=== PATIENT | female | born 2005 | race African-American/Black ===

== ENCOUNTER 2024-07-29 07:17 | Emergency (ER) | payer OTHER ==
--- OUTSIDE RECORDS SUMMARY | 2024-07-29 07:20 | XMS REPORT | Continuity of Care Document ---
Author Name Unknown Address [address] [place] [address] [facility] thconnect Address [address] [place] [address] Care Team Providers Care Sales Representative [facility] Name Role Phone INOCNETE HOWE Primary Care Physician Unava ilable INNA CASTRO Attending Clinician Unavail able LISA FLORES Attending Clinician Unavailable LISA FLORES Attending Clinician Unavailable Lisa Flores DO Attending Clinician Grover Inna KIRK Attending Clinician + MARCOS Attending Clinician Unavailable MARCOS Admitting Clinician Unavailable Payers Payer Name Policy Type Policy Number Effective Date Expirati on Date Source [place] [facility] [id number] 2024 00:00:00 [facility] (MEDICAID HMO) [id number] 2016 00:00:00 [facility] [place] [facility] (MEDICAID HMO) [id number] 2016 00:00:00 Problems Condition Name Condition Details Condition Category Status Onset Date Resolution Date Last Treatment Date Treating Clinician Comments Source Supervisio n of high risk , antepartum Supervisio n of high risk , antepartum Disease Active 06-22 00:00: 00 General acute hospital Obesity in Obesity in Disease Active 06-22 00:00: 00 General acute hospital Allergies, Adverse Reactions, Alerts Allergy Name Allergy Type Status Severity Reaction(s) Onset Date Inactive Date Treating Clinician Comments Source NO KNOWN ALLERGIE S Drug Class Active General acute hospital Social History Social Habit Start Date Stop Date Quantity Comments Source ASSERTION 2024-05-25 00:00:00 [facility] Alcoholic beverage intake 2024-07-20 00:00:00 2024-07-20 00:00:00 Lifetime non-drinker (finding) [facility] Tobacco use and exposure 2024-06-22 00:00:00 2024-06-22 00:00:00 Smokeless tobacco non-user [facility] History of Social function 2024-06-22 00:00:00 2024-06-22 00:00:00 [facility] Sex assigned at 2003 00:00:00 2003 00:00:00 [facility] Smoking Status Start Date Stop Date Source Never smoked tobacco General acute hospital Medications Ordered Medication Name Filled Medication Name Start Date Stop Date Current Medication? Ordering Clinician Indication Dosage Frequency Signature (SIG) Comments Components Source PNV 67-iron ps-folate no.1-dha (VITAFOL ULTRA) 29 mg iron- 1 mg-200 mg Cap 06-22 00:00: 00 Yes [id number] 1{each} Take 1 Each by mouth in the morning. General acute hospital amoxicillin 500 mg capsule amoxicillin 500 mg capsule No amoxicilli n 500 mg capsule [place] [facility] [place] 1.5/30 (28) 1.5 mg-30 mcg (21)/75 mg (7) tablet [place] 1.5/30 (28) 1.5 mg-30 mcg (21)/75 mg (7) tablet No [place] 1.5/30 (28) 1.5 mg-30 mcg (21)/75 mg (7) tablet [place] [facility] bromphenira mine-pseudo ephedrine-D M 2 mg-30 mg-10 mg/5 mL oral syrup bromphenira mine-pseudo ephedrine-D M 2 mg-30 mg-10 mg/5 mL oral syrup No bromphenir amine-pseu doephedrin e-DM 2 mg-30 mg-10 mg/5 mL oral syrup [facility] Program fluticasone propionate 50 mcg/actuati on nasal spray,suspe nsion 1 spray in each nare once a day for 7 days then as needed for nasal congestion fluticasone propionate 50 mcg/actuati on nasal spray,suspe nsion 1 spray in each nare once a day for 7 days then as needed for nasal congestion No fluticason e propionate 50 mcg/actuat ion nasal spray,susp ension 1 spray in each nare once a day for 7 days then as needed for nasal congestion [facility] Program norgestimat e 0.25 mg-ethinyl estradiol 35 mcg tablet norgestimat e 0.25 mg-ethinyl estradiol 35 mcg tablet No norgestima te 0.25 mg-ethinyl estradiol 35 mcg tablet [place] [facility] Program polyethylen e glycol 3350 17 gram/dose oral powder Take 17 g and mix in 8 oz of water. Please take once a day. Okay to hold if causing diarrhea polyethylen e glycol 3350 17 gram/dose oral powder Take 17 g and mix in 8 oz of water. Please take once a day. Okay to hold if causing diarrhea No polyethyle ne glycol 3350 17 gram/dose oral powder Take 17 g and mix in 8 oz of water. Please take once a day. Okay to hold if causing diarrhea [facility] Program Immunizations Ordered Immunization Name Filled Immunization Name Date Status Comments Source meningococcal MCV4P meningococcal MCV4P 10:05:00 Completed [facility] meningococcal B, recombinant meningococcal B, recombinant 2021-05-01 10:04:00 Completed [facility] Meningococcal Polysaccharide (groups A, C, Y and W-135) conjugate vaccine (MCV4P) 2021-05-01 00:00:00 Completed HPV9 2016-05-07 00:00:00 Completed HPV9 HPV9 2016-05-07 00:00:00 Completed [facility] HPV 2015-04-19 00:00:00 Completed HPV, quadrivalent HPV, quadrivalent 2015-04-19 00:00:00 Completed [facility] HPV 2014-12-23 00:00:00 Completed Meningococcal Polysaccharide (groups A, C, Y and W-135) conjugate vaccine (MCV4P) 2014-12-23 00:00:00 Completed TDAP 2014-12-23 00:00:00 Completed Tdap Tdap 2014-12-23 00:00:00 Completed [facility] meningococcal MCV4P meningococcal MCV4P 00:00:00 Completed [facility] HPV, quadrivalent HPV, quadrivalent 2014-12-23 00:00:00 Completed [facility] DTaP, Unspecified Formulation 2007-06-17 00:00:00 Completed HEPATITIS A 2007-06-17 00:00:00 Completed Proquad (MMR/VARICELLA) 2007-06-17 00:00:00 Completed IPV 2007-06-17 00:00:00 Completed polio, unspecified formulation polio, unspecified formulation 2007-06-17 00:00:00 Completed [facility] MMRV MMRV 2007-06-17 00:00:00 Completed [facility] Hep A, ped/adol, 2 dose Hep A, ped/adol, 2 dose 2007-06-17 00:00:00 Completed [facility] DTaP DTaP 2007-06-17 00:00:00 Completed [facility] HEPATITIS A 2006-06-11 00:00:00 Completed Hep A, ped/adol, 2 dose Hep A, ped/adol, 2 dose 2006-06-11 00:00:00 Completed [facility] IPV 2005-03-28 00:00:00 Completed polio, unspecified formulation polio, unspecified formulation 2005-03-28 00:00:00 Completed [facility] Pneumococcal 7 Conjugate, PCV7 (Prevnar7) 2004-09-20 00:00:00 Completed pneumococcal conjugate PCV 7 pneumococcal conjugate PCV 7 2004-09-20 00:00:00 Completed [facility] DTaP, Unspecified Formulation 2004-09-19 00:00:00 Completed [facility] HIB 4 Dose Schedule 2004-09-19 00:00:00 Completed Hib (PRP-T) Hib (PRP-T) 2004-09-19 00:00:00 Completed [facility] DTaP DTaP 2004-09-19 00:00:00 Completed [facility] MMR 2004 00:00:00 Completed MMR MMR 2004 00:00:00 Completed [facility] DTaP, Unspecified Formulation 2003 00:00:00 Completed Hep B, Adol or Pedi Dosage 2003 00:00:00 Completed HIB 4 Dose Schedule 2003 00:00:00 Completed Pneumococcal 7 Conjugate, PCV7 (Prevnar7) 2003 00:00:00 Completed pneumococcal conjugate PCV 7 pneumococcal conjugate PCV 7 2003 00:00:00 Completed [facility] Hib (PRP-T) Hib (PRP-T) 2003 00:00:00 Completed [facility] Hep B, adolescent or pediatric Hep B, adolescent or pediatric 2003 00:00:00 Completed [facility] DTaP DTaP 2003 00:00:00 Completed [facility] DTaP, Unspecified Formulation 2003 00:00:00 Completed HIB 4 Dose Schedule 2003 00:00:00 Completed Pneumococcal 7 Conjugate, PCV7 (Prevnar7) 2003 00:00:00 Completed IPV 2003 00:00:00 Completed polio, unspecified formulation polio, unspecified formulation 2003 00:00:00 Completed [facility] pneumococcal conjugate PCV 7 pneumococcal conjugate PCV 7 2003 00:00:00 Completed [facility] Hib (PRP-T) Hib (PRP-T) 2003 00:00:00 Completed [facility] DTaP DTaP 2003 00:00:00 Completed [facility] DTaP, Unspecified Formulation 2003 00:00:00 Completed Hep B, Adol or Pedi Dosage 2003 00:00:00 Completed HIB 4 Dose Schedule 2003 00:00:00 Completed Pneumococcal 7 Conjugate, PCV7 (Prevnar7) 2003 00:00:00 Completed IPV 2003 00:00:00 Completed polio, unspecified formulation polio, unspecified formulation 2003 00:00:00 Completed [facility] pneumococcal conjugate PCV 7 pneumococcal conjugate PCV 7 2003 00:00:00 Completed [facility] Hib (PRP-T) Hib (PRP-T) 2003 00:00:00 Completed [facility] Hep B, adolescent or pediatric Hep B, adolescent or pediatric 2003 00:00:00 Completed [facility] DTaP DTaP 2003 00:00:00 Completed [facility] Hep B, Adol or Pedi Dosage 2003 00:00:00 Completed Hep B, adolescent or pediatric Hep B, adolescent or pediatric 2003 00:00:00 Completed [facility] DTaP, Unspecified Formulation Unknown Completed [facility] HEPATITIS A Unknown Completed [facility] Hep B, Adol or Pedi Dosage Unknown Completed [facility] HIB 4 Dose Schedule Unknown Completed [facility] HPV Unknown Completed [facility] HPV9 Unknown Completed [facility] Meningococcal Polysaccharide (groups A, C, Y and W-135) conjugate vaccine (MCV4P) Unknown Completed [facility] MMR Unknown Completed [facility] Proquad (MMR/VARICELLA) Unknown Completed [facility] Pneumococcal 7 Conjugate, PCV7 (Prevnar7) Unknown Completed [facility] IPV Unknown Completed [facility] TDAP Unknown Completed [facility] DTaP, Unspecified Formulation Unknown Completed [facility] HEPATITIS A Unknown Completed [facility] Hep B, Adol or Pedi Dosage Unknown Completed [facility] HIB 4 Dose Schedule Unknown Completed [facility] HPV Unknown Completed [facility] HPV9 Unknown Completed [facility] Meningococcal Polysaccharide (groups A, C, Y and W-135) conjugate vaccine (MCV4P) Unknown Completed [facility] MMR Unknown Completed [facility] Proquad (MMR/VARICELLA) Unknown Completed [facility] Pneumococcal 7 Conjugate, PCV7 (Prevnar7) Unknown Completed [facility] IPV Unknown Completed [facility] TDAP Unknown Completed [facility] DTaP, Unspecified Formulation Unknown Completed [facility] HEPATITIS A Unknown Completed [facility] Hep B, Adol or Pedi Dosage Unknown Completed [facility] HIB 4 Dose Schedule Unknown Completed [facility] HPV Unknown Completed [facility] HPV9 Unknown Completed [facility] Meningococcal Polysaccharide (groups A, C, Y and W-135) conjugate vaccine (MCV4P) Unknown Completed [facility] MMR Unknown Completed [facility] Proquad (MMR/VARICELLA) Unknown Completed [facility] Pneumococcal 7 Conjugate, PCV7 (Prevnar7) Unknown Completed [facility] IPV Unknown Completed [facility] TDAP Unknown Completed [facility] Vital Signs Vital Name Observation Time Observation Value Comments S ource Body temperature 2024-07-27 08:05:00 36.83 Juli [facility] Systolic blood pressure 2024-07-27 08:00:00 108 mm[Hg] [facility] Diastolic blood pressure 2024-07-27 08:00:00 74 mm[Hg] [facility] Heart rate 2024-07-27 08:00:00 81 /min [facility] Respiratory rate 2024-07-27 08:00:00 18 /min [facility] Oxygen saturation in Arterial blood by Pulse oximetry 2024-07-27 08:00:00 100 /min [facility] Body height 2024-07-27 05:38:00 160 cm [facility] Body weight 2024-07-27 05:38:00 80.74 kg [facility] BMI 2024-07-27 05:38:00 31.53 kg/m2 [facility] Systolic blood pressure 2024-07-20 21:16:00 119 mm[Hg] [facility] Diastolic blood pressure 2024-07-20 21:16:00 84 mm[Hg] [facility] Heart rate 2024-07-20 21:16:00 79 /min [facility] Body temperature 2024-07-20 21:16:00 36.56 Juli [facility] Respiratory rate 2024-07-20 21:16:00 17 /min [facility] Body height 2024-07-20 21:16:00 160 cm [facility] Body weight 2024-07-20 21:16:00 81.012 kg [facility] BMI 2024-07-20 21:16:00 31.64 kg/m2 [facility] Systolic blood pressure 2024-06-22 13:25:00 118 mm[Hg] [facility] Diastolic blood pressure 2024-06-22 13:25:00 80 mm[Hg] [facility] Heart rate 2024-06-22 13:25:00 81 /min [facility] Body temperature 2024-06-22 13:25:00 36.06 Juli [facility] Respiratory rate 2024-06-22 13:25:00 18 /min [facility] Body height 2024-06-22 13:25:00 160 cm [facility] Body weight 2024-06-22 13:25:00 79.924 kg [facility] BMI 2024-06-22 13:25:00 31.21 kg/m2 [facility] BP Diastolic 2021-05-01 00:00:00 74 mm[Hg] [facility] Height 2021-05-01 00:00:00 66 [in_i] [facility] BMI (Body Mass Index) 2021-05-01 00:00:00 24.9 kg/m2 [facility] BP Systolic 2021-05-01 00:00:00 114 mm[Hg] Manjinder plunkett [facility] Body Weight 2021-05-01 00:00:00 2468 [oz_av] [facility] Procedures Procedure Date / Time Performed Performing Clinicia n Source COMP. METABOLIC PANEL (53996) 2024-07-27 06:03:00 Lisa Flores [facility] TOTAL BETA HCG ASSAY 2024-07-27 06:03:00 Jared Flores [facility] CBC WITH DIFF 2024-07-27 06:03:00 Lisa Flores [facility] POCT URINALYSIS 2024-07-20 21:17:00 Inna Castro [facility] POCT URINALYSIS W/O SPECIFIC GRAVITY 2024-06-22 13:20:00 Inna Castro [facility] POCT TEST 2024-06-22 13:19:00 Chino Castro [facility] Plan of Care Planned Activity Planned Date Details Comments Source Diagnostic Test Pending 2021-05-01 00:00:00 HIV 1+2 AB + HIV 1 p24 Ag, qualitative immunoassay, serum [code = HIV 1+2 AB + HIV 1 p24 Ag, qualitative immunoassay, serum] [facility] Diagnostic Test Pending 2021-05-01 00:00:00 lipid panel, serum [code = lipid panel, serum] [facility] Instructions [facility] Encounters Start Date/Time End Date/Time Encounter Type Admission Type Attending Clinicians Care Facility Care Department Encounter ID Source 2024-08-14 10:30:00 2024-08-14 10:30:00 Outpatient R [facility] [id number] General acute hospital 2024-07-27 00:41:00 2024-07-27 03:14:00 Emergency X LISA FLORES PHILLIP [facility] E[facility] [id number] General acute hospital 2024-07-27 00:41:00 2024-07-27 03:14:00 Emergency [facility] [id number] General acute hospital 2024-07-23 00:00:00 2024-07-23 14:00:00 Abstract Inna Castro [facility] [employer] [facility] & CHILD [facility] [id number] General acute hospital 2024-07-23 09:30:00 2024-07-23 10:30:38 Outpatient R INNA CASTRO [facility] [id number] General acute hospital 2024-07-21 00:00:00 2024-07-21 10:35:52 Refill Inna Castro [facility] [employer] [facility] & [facility]ILD [facility] [id number] General acute hospital 2024-06-25 00:00:00 2024-07-21 07:30:01 Patient Secure Msg Inna Castro [facility] [employer] [facility]ILD [facility] [id number] General acute hospital 2024-07-20 16:15:00 2024-07-20 16:39:18 Outpatient R INNA CASTRO [facility] [id number] General acute hospital 2024-07-20 16:15:00 2024-07-20 16:30:00 Routine Visit Inna Castro [facility] [employer] [facility] & [facility]ILD [facility] [id number] General acute hospital 2024-07-01 00:00:00 2024-07-01 13:01:40 Telephone Inna Castro [facility] [employer] [facility] & [facility]ILD [facility] [id number] [id number] [id number] [id number] General acute hospital 2024-06-22 00:00:00 2024-06-25 11:00:55 Patient Secure Msg Inna Castro [facility] [employer] [facility] & [facility]ILD [facility] [id number] [id number] [id number] General acute hospital 2024-06-22 07:45:00 2024-06-22 09:24:28 Outpatient R INNA CASTRO [facility] [id number] General acute hospital 2024-06-22 07:45:00 2024-06-22 09:24:28 Initial Visit Inna Castro [facility] [employer] [facility] & CHILD [facility] [id number] [id number] General acute hospital 2021-07-03 05:03:00 2021-07-03 05:03:00 Outpatient LISTER_MELI [facility] [id number] [facility] 2021-05-01 12:59:00 2021-05-01 12:59:00 Outpatient LISTER_MELI [facility] [id number] [facility] 2021-05-01 00:00:00 2021-05-01 00:00:00 Pina Valles MD: [address], [place] [address] , Ph. [facility] Pediatric [id number] [facility] 2021-04-28 11:41:00 2021-04-28 11:41:00 Outpatient LISTER_ALISSONI OLIVER [facility] [id number] [facility] 2019-12-02 01:52:00 2019-12-02 01:52:00 Outpatient LISTER_MELI [facility] [id number] [facility] Results Test Description Test Time Test Comments Results Result Co mments Source [facility] [id number] 13:20:00* Test Item Value Reference Range Interpretation Comme nts POCT PREG (test code = 1605) Positive On board controls acceptable with C Line (test code = 3574) Yes POCT PREG LOT # (test code = 3575) POCT PREG TEST DATE ( test code = 3576) [facility] Urinalysis w/o Specific [id number] 13:20:00* Test Item Value Reference Range Interpretation Comme nts POCT PH U (test code = 3254) 5 mg/dl 5-8 POCT U LEUK EST (test code = 3263) 1+ Negative - Negative POCT U NIT (test code = 3262) neg Negative - Negati ve POCT U PROT (test code = 3259) trace Negative - Negat magalys POCT U GLU (test code = 3256) neg Negative - Negati ve POCT U KETONE (test code = 3258) neg Negative - Neg ative POCT U BLD (test code = 3257) trace Negative - Negati ve [facility] Notes Date/Time Note Provider Source 2024-07-27 03:12:36 Pt given printed and verbal discharge instructions regarding threatened , encouraged hydration, Pt verbalized understanding of instructions, pt awake alert oriented, resp reg unlabored, skin w/d, color appropriate for race, moves all ext well,pt encouraged to follow up with pcp Advised to seek medical attention for new/prolonged/worsening of symptoms, PIV d'cd, dressing to site, catheter in tact. Awake, alert oriented, resp reg unlabored, skin w/d, pt leaving amb with steady gait, in no apparent distress, Anjelica Koenig RN [facility] 2024-07-27 02:26:24 RN and MD at bedside while MD performs ultrasound T [facility] 2024-07-27 00:36:39 C/o lower abdominal cramping and vaginal bleeding for the last 12 hours. Has gone through 4 pads today Love Pinedo RN [facility] 2024-07-01 13:00:53 Usg orders placed ASIYA Spencer 07/01/2024 1:01 PM [facility]
[2024-07-29] MEDS ORDERED: MORPHINE 4 MG/ML SYR ONE (07:46)
[2024-07-29] MEDS ORDERED: ONDANSETRON 4 MG/2 ML VIAL ONE (07:46)
[2024-07-29 07:55] LABS: Absolute Lymphocytes (CBC) 0.9 K/uL (0.7-4.9); Absolute Monocytes 0.2 K/uL (0.1-1.3); Absolute Neutrophil 5.6 K/uL (1.8-8.0); Basophils % 0.1 % (0-1.3); Eosinophils % 0.3 % (0-4.4); Hematocrit 39.8 % (36.0-45.0); Hemoglobin 13.3 g/dL (12.0-15.0); Lymphocytes % 13.1 % (15.3-44.8); MCH 29.8 pg (27.0-35.0); MCHC 33.5 g/dL (32.0-36.0); MCV 88.8 fL (80-100); MPV 6.9 fL (7.6-11.3); Monocytes % 2.9 % (3.3-12.3); Neutrophils % 83.6 % (41.7-73.7); Nucleated Red Blood Cells % 0.1 % (0-0); Platelets 303 thou/uL (152-406); RBC Red Blood Cell Count 4.48 M/uL (3.86-4.86); Red Cell Distribution Width 12.7 % (12.1-15.2)
[2024-07-29 08:33] LABS: Albumin 3.5 g/dL (3.4-5.0); Albumin/Globulin Ratio 0.9 (1.1-1.8); Anion Gap 7.8 mEq/L (5.0-15.0); Bilirubin Direct 0.2 mg/dL (0-0.2); Bilirubin Indirect, Calculated 0.2 mg/dL (0.2-0.8); Bilirubin Total 0.4 mg/dL (0.2-1.0); Globulin 3.9 g/dL (2.3-3.5); Potassium 3.8 mEq/L (3.5-5.1); Protein, Total 7.4 g/dL (6.4-8.2)
--- NOTE | 2024-07-29 09:19 | RAD REPORT ---
EXAMINATION: Transvaginal OB CLINICAL INDICATION: Female 19 years old.Vaginal bleeding TECHNIQUE: Real-time ultrasonography of the pelvis was performed transvaginally. Color and spectral D oppler evaluation of the ovaries was performed. COMPARISON: No prior exam. FINDINGS: UTERUS AND CERVIX: The uterus measures 9.8 cm in length. The uterus is normal. No masses seen The end ometrium is heterogeneous especially at the fundus, with thickening up to 9 mm, and prominent amounts of fluid present along the mid to lower segments of the uterine cavity. No appreciable focal masses. No intrauterine visualized. RIGHT OVARY: Normal The right ovary measures 3.8 x 1.7 x 2.9 cm. Normal color and spectral Doppler evaluation of the right ovary.. LEFT OVARY: Normal The left ovary measures 3.0 x 1.9 x 1.9 cm. Normal color and spectral Doppler evaluation of the left ovary.. FREE FLUID: No free fluid. IMPRESSION: No intrauterine visualized. Heterogeneous thickening of the endometrium at the fundus, and prominent amount of fluid along the lo wer endometrial cavity, concerning for an aborted . Correlation with beta hCG levels is recommended.
--- NOTE | 2024-07-29 09:59 | EDPHYS ---
Physician Documentation [facility] Name: Joselyn Saldana Age: 19 yrs Sex: Female : 2005 Arrival Date: 07/29/2024 Time: 07:17 Bed 13 Private MD: ED Physician Amadeo Ivan HPI: 07/29 07:51 This 19 yrs old Black Female presents to ER via Ambulatory with complaints of Vaginal rt Bleeding. 07:51 Patient reportedly was diagnosed with an ectopic about 2 days ago, was sent rt for repeat ultrasound, to be done tomorrow. The patient reports that she is having worsening vaginal bleeding today as well as abdominal cramping. Patient states that she is about 11 weeks but has not had a confirmed IUP. Denies other acute complaints at this time, symptoms are moderate in severity, no other aggravating or allieviating factors.. FUND DIRECTOR: 07:26 1, Full Term 0, unknown ll1 Historical: - Allergies: 07:23 No Known Allergies; ll1 - Home Meds: 07:23 None [Active]; ll1 - PMHx: 07:23 None; ll1 - PSHx: 07:23 None; ll1 - Immunization history:: Adult Immunizations up to date. - Infectious Disease History:: Denies. - Social history:: Smoking status: Patient denies any tobacco usage or history of. - Family history:: not pertinent. ROS: 07:51 Positive for vaginal bleeding, Negative for burning with urination, rt 07:51 Constitutional: Negative for fever, chills, and weight loss, Cardiovascular: Negative for chest pain, palpitations, and edema, Respiratory: Negative for shortness of breath, cough, wheezing, and pleuritic chest pain, MS/Extremity: Negative for injury and deformity, Skin: Negative for injury, rash, and discoloration, 07:51 Abdomen/GI: Positive for abdominal pain, nausea, Exam: 07:51 Constitutional: This is a well developed, well nourished patient who is awake, alert, rt and in no acute distress. Head/Face: Normocephalic, atraumatic. Chest/axilla: Normal chest wall appearance and motion. Nontender with no deformity. No lesions are appreciated. Cardiovascular: Regular rate and rhythm with a normal S1 and S2. No gallops, murmurs, or rubs. Normal PMI, no JVD. No pulse deficits. Respiratory: Lungs have equal breath sounds bilaterally, clear to auscultation and percussion. No rales, rhonchi or wheezes noted. No increased work of breathing, no retractions or nasal flaring. Skin: Warm, dry with normal turgor. Normal color with no rashes, no lesions, and no evidence of cellulitis. MS/ Extremity: Pulses equal, no cyanosis. Neurovascular intact. Full, normal range of motion. Neuro: Awake and alert, GCS 15, oriented to person, place, time, and situation. Cranial nerves II-XII grossly intact. Motor strength 5/5 in all extremities. Sensory grossly intact. Cerebellar exam normal. Normal gait. 07:51 Abdomen/GI: Mild tenderness diffusely without rebound, guarding, distention, Vital Signs: 07:23 BP 110 / 60; Pulse 71; Resp 17; Temp 97.6; Pulse Ox 100% on R/A; Pain 10/10; ll1 10:08 BP 103 / 52; Pulse 71; Resp 16; Pulse Ox 100% ; Pain 10/10; ll1 07:23 Pain Scale: Adult ll1 10:08 Pain Scale: Adult ll1 MDM: 07:26 Medical Screening Exam initiated rt 10:48 Differential diagnosis: Early IUP, miscarriage, ectopic . Data reviewed: vital rt signs, nurses notes, diagnostic data from outside facility, I reviewed the patient's MyChart from [facility], patient did have a documented IUP on ultrasound on 1010, 2 days ago, the patient's beta hCG was 5500, lab test result(s), radiologic studies. I considered the following discharge prescriptions or medication management in the emergency department Medications were administered in the Emergency Department. See MAR. Counseling: I had a detailed discussion with the patient and/or guardian regarding the historical points, exam findings, and any diagnostic results supporting the discharge/admit diagnosis, lab results, radiology results, the need for outpatient follow up. ED course: Patient initially stated that she was told that she had an ectopic , when I further clarified with the patient, she stated that she was told that she might have an ectopic and was instructed to have a 48-hour follow-up. Patient has a significantly decreasing beta hCG with no signs of ectopic on ultrasound today. Believe that the patient is in the process of having a miscarriage, was instructed to keep her appointment tomorrow with FUND DIRECTOR. 07/29 07:37 Order name: Basic Metabolic Panel; Complete Time: 08:35 rt 07/29 07:37 Order name: CBC with Diff; Complete Time: 08:35 rt 07/29 07:37 Order name: Quantitative Hcg; Complete Time: 08:35 rt 07/29 07:37 Order name: LFT's; Complete Time: 08:35 rt 07/29 07:37 Order name: Type And Screen; Complete Time: 08:35 rt 07/29 09:18 Order name: ABO/RH no charge; Complete Time: 09:18 EDMS 07/29 07:37 Order name: US Transvaginal Ob; Complete Time: 09:20 rt 07/29 07:37 Order name: IV Saline Lock; Complete Time: 07:47 rt 07/29 07:37 Order name: Labs collected and sent; Complete Time: 07:47 rt 07/29 07:37 Order name: NPO; Complete Time: 07:47 rt 07/29 08:46 Order name: Labs - recollect needed: collect abo\E\rh no charge; Complete Time: 08:53 bd Administered Medications: 08:48 Drug: morphine IVP or IV 4 mg IVP once over 4 mins {Note: pain 10/10 RASS 0.} Route: ll1 IVP; Infused Over: 4 mins; Site: right antecubital; 09:02 Follow up: Response: No adverse reaction; Pain is decreased; RASS: Alert and Calm (0) bp 08:48 Drug: Ondansetron IVP 4 mg IVP once; over 2 minutes Route: IVP; Site: right antecubital;ll1 09:02 Follow up: Response: No adverse reaction; Nausea is decreased; RASS: Alert and Calm (0) bp Disposition Summary: 07/29/24 09:58 Discharge Ordered Notes: Location: Home rt Problem: new rt Symptoms: are unchanged rt Condition: Stable rt Diagnosis - Incomplete spontaneous without complication rt Followup: rt - With: Private Physician - When: Tomorrow - Reason: Discharge Instructions: - Discharge Summary Sheet rt - Incomplete Miscarriage rt Forms: - Work release form rt - Medication Reconciliation Form rt - Antibiotic Education rt - Prescription Opioid Use rt - Patient Portal Instructions rt - Leadership Thank You Letter rt Prescriptions: - ondansetron 4 mg Oral Tablet,disintegrating - take 1 tablet ORAL route every 6 hours as needed for nausea; 15 tablet; rt Refills: 0, Product Selection Permitted Signatures: Dispatcher [employer] Verna Christina Lynsay RN RN ll1 Amadeo Ivan MD MD rt Taz Carter RN bp
--- NOTE | 2024-07-29 09:59 | ER ---
Nurse's Notes [facility] Name: Joselyn Saldana Age: 19 yrs Sex: Female : 2005 Arrival Date: 07/29/2024 Time: 07:17 Bed 13 Private MD: Diagnosis: Incomplete spontaneous without complication Presentation: 07/29 07:23 Chief complaint: Patient states: 11 weeks . Started vaginal bleeding last ll1 night. + N/V this morning. Coronavirus screen: Client denies travel out of the [place] in the last 14 days. At this time, the client does not indicate any symptoms associated with coronavirus-19. Ebola Screen: Patient denies travel to an Ebola-affected area in the 21 days before illness onset. Initial Sepsis Screen: Does the patient meet any 2 criteria? No. Patient's initial sepsis screen is negative. Does the patient have a suspected source of infection? No. Patient's initial sepsis screen is negative. Risk Assessment: Do you want to hurt yourself or someone else? Patient reports no desire to harm self or others. Onset of symptoms was July 28, 2024. 07:23 Method Of Arrival: Ambulatory ll1 07:23 Acuity: LIAM 3 ll1 Triage Assessment: 07:24 General: Appears uncomfortable, Behavior is calm, cooperative, appropriate for age. ll1 General: Reports fatigue for. Pain: Complains of pain in pelvis Pain currently is 10 out of 10 on a pain scale. Quality of pain is described as crampy. : Reports cramping, vaginal bleeding that is bright red, with clots, heavy flow G1, P0. BUNCHER HAND: 07:26 1, Full Term 0, unknown ll1 Historical: - Allergies: 07:23 No Known Allergies; ll1 - Home Meds: 07:23 None [Active]; ll1 - PMHx: 07:23 None; ll1 - PSHx: 07:23 None; ll1 - Immunization history:: Adult Immunizations up to date. - Infectious Disease History:: Denies. - Social history:: Smoking status: Patient denies any tobacco usage or history of. - Family history:: not pertinent. Screenin:26 [facility] ED Fall Risk Assessment (Adult) History of falling in the last 3 months, ll1 including since admission No falls in past 3 months (0 pts) Confusion or Disorientation No (0 pts) Intoxicated or Sedated No (0 pts) Impaired Gait No (0 pts) Mobility Assist Device Used No (0 pt) Altered Elimination No (0 pt) Score/Fall Risk Level 0 - 2 = Low Risk Maintained a safe environment, Hourly rounding (assess needs \T\ fall precautionary measures) done. Abuse screen: Denies threats or abuse. Nutritional screening: No deficits noted. Tuberculosis screening: No symptoms or risk factors identified. Assessment: 07:45 Reassessment: No changes from previously documented assessment. to US via wheelchair. ll1 09:00 Reassessment: No changes from previously documented assessment. Patient and/or family bp updated on plan of care and expected duration. Pain level reassessed. Patient is alert, oriented x 3, equal unlabored respirations, skin warm/dry/pink. Vital Signs: 07:23 BP 110 / 60; Pulse 71; Resp 17; Temp 97.6; Pulse Ox 100% on R/A; Pain 10/10; ll1 10:08 BP 103 / 52; Pulse 71; Resp 16; Pulse Ox 100% ; Pain 10/10; ll1 07:23 Pain Scale: Adult ll1 10:08 Pain Scale: Adult ll1 ED Course: 07:22 Patient arrived in ED. ll1 07:22 Arm band placed on Patient placed in an exam room, on a stretcher. ll1 07:24 Amadeo Ivan MD is Attending Physician. rt 07:24 Triage completed. ll1 07:26 Nasima Brownlee, JOHN is Primary Nurse. ll1 07:27 Patient has correct armband on for positive identification. Bed in low position. ll1 Provided Education on: ER procedures and process. Client placed on continuous cardiac and pulse oximetry monitoring. NIBP monitoring applied. 07:35 Inserted saline lock: 22 gauge in right antecubital area, using aseptic technique. ll1 ,using aseptic technique. labeled with time/date/initials Blood collected. Flushed with 10 mL NS. 07:51 No provider procedures requiring assistance completed. ll1 08:24 US Transvaginal Ob In Process Unspecified. EDMS 10:07 IV discontinued, intact, bleeding controlled, No redness/swelling at site. Pressure ll1 dressing applied. Administered Medications: 08:48 Drug: morphine IVP or IV 4 mg IVP once over 4 mins {Note: pain 10/10 RASS 0.} Route: ll1 IVP; Infused Over: 4 mins; Site: right antecubital; 09:02 Follow up: Response: No adverse reaction; Pain is decreased; RASS: Alert and Calm (0) bp 08:48 Drug: Ondansetron IVP 4 mg IVP once; over 2 minutes Route: IVP; Site: right antecubital;ll1 09:02 Follow up: Response: No adverse reaction; Nausea is decreased; RASS: Alert and Calm (0) bp Medication: 07:26 VIS not applicable for this client. ll1 Outcome: 09:58 Discharge ordered by MD. rt 10:08 Patient left the ED. ll1 10:08 Discharged to home ambulatory, ll1 10:08 Condition: stable 10:08 Discharge instructions given to patient, Instructed on discharge instructions, follow up and referral plans. medication usage, Demonstrated understanding of instructions, follow-up care, medications, Prescriptions given X 1, Signatures: Dispatcher [employer] EDTaz Crespo RN RN bp Lewis, Lynsay, RN RN ll1 Amadeo Ivan MD MD rt Corrections: (The following items were deleted from the chart) 10:31 10:30 BP 103 / 52; Pulse 71bpm; Resp 16bpm; Pulse Ox 100%; Pain 10/10, Adult; ll1 ll1
[2024-07-29 12:31] VITALS: BP 110/60; TEMP 97.6; O2SAT 100
== END 2024-07-29 10:08 | disposition home or self-care (01) ==
LOC: ER 07:17
DX: O03.4 Incomplete spontaneous abortion without complication (principal)
CPT/HCPCS: 85025; 80048; 36415; 86900; 86850; 86901; 80076; 84702; 76817; 96375; 96374; 99284; J2405